=== PATIENT | female | born 2000 | race African-American/Black ===

== ENCOUNTER 2021-03-30 05:58 | Inpatient (IN) ==
[2021-03-30] MEDS ORDERED: CITRIC ACID/SODIUM CITRATE 30 ML UDCUP PO ONE (06:07)
[2021-03-30] MEDS ORDERED: ceFAZolin 2,000 MG in PREMIX 1 EACH IV ONE (06:07)
[2021-03-30] MEDS ORDERED: FAMOTIDINE 20 MG/2 ML VIAL IV ONE (06:07)
[2021-03-30] MEDS: LACTATED RINGERS 1,000 ML IV SCH ×2 (06:30→07:40)
[2021-03-30] MEDS ORDERED: OXYTOCIN/LR 30 UNIT/1,000 ML BAG IV ONE (06:34)
[2021-03-30] MEDS ORDERED: OXYTOCIN 10 UNIT/ML VIAL IM ONE (06:35)
[2021-03-30 06:50] LABS: Basophils % 0.3 % (0.0-0.8); Eosinophils # 0.1 10*3/uL (0.0-0.87); Hematocrit 38.5 VOL% (35.7-47.0); Hemoglobin 11.7 GM/DL (12.0-16.0); Immature Granulocytes % 0.5 %; Immature Granulocytes Absolute 0.04 #; Lymphocytes # 2.3 10*3/uL (1.4-4.0); Lymphocytes % 29.2 % (21.3-54.2); Mean Corpuscular HGB Conc 30.4 GM/DL (32-36); Mean Corpuscular Volume 76.5 FL (87-102); Mean Platelet Volume 12.3 FL (9.6-12.0); Monocytes % 8.7 % (1.7-12.7); Neutrophils % 60.3 % (38.7-73.9); Platelet Count 159 T/CUMM (130-400); Red Blood Count 5.03 MC/CUMM (3.8-5.5); Red Cell Distribution Width 13.2 % (9.3-17.3); White Blood Count 7.7 T/CUMM (4-12)
[2021-03-30 07:28] LABS: Hypochromasia 2+; Microcytosis 2+; Platelet Estimate Adequate; Polychromasia Slight
[2021-03-30 07:29] LABS: Albumin 2.7 G/DL (3.4-5.0); Bilirubin,Total 0.4 MG/DL (0.2-1.0); Calcium 8.8 MG/DL (8.5-10.1); Osmolality,Calculated 264.2 MOS/KG (273-304); Potassium 3.9 MMOL/L (3.5-5.1); Total Protein 7.2 G/DL (6.4-8.2)
[2021-03-30] MEDS ORDERED: TRANEXAMIC ACID 1,000 MG/10 ML VIAL ONE (07:36)
[2021-03-30] MEDS ORDERED: miSOPROStoL 200 MCG TABLET ONE (07:36)
[2021-03-30] MEDS ORDERED: OXYTOCIN/LR 20 UNIT/1,000 ML BAG IV ONE ×2 (07:37→11:58)
[2021-03-30] MEDS ORDERED: METHYLERGONOVINE 0.2 MG/1 ML AMP ONE (07:37)
[2021-03-30] MEDS ORDERED: CARBOPROST TROMETHAMINE 250 MCG/ML AMP IM ONE (07:37)
[2021-03-30] MEDS ORDERED: SODIUM CHLORIDE 0.9% 0 ML IV ONE (07:39)
[2021-03-30] MEDS ORDERED: ONDANSETRON 4 MG/2 ML VIAL ONE (09:56)
[2021-03-30] MEDS ORDERED: DEXAMETHASONE 4 MG/1 ML VIAL ONE ×2 (09:56)
[2021-03-30] MEDS ORDERED: BUPIVACAINE SPINAL 0.75% 2 ML AMP SPINAL ONE (09:56)
[2021-03-30] MEDS ORDERED: ACETAMINOPHEN INJ 1,000 MG/100 ML VIAL IV ONE (10:13)
[2021-03-30] MEDS ORDERED: KETOROLAC 30 MG/1 ML VIAL ONE (10:13)
[2021-03-30] MEDS ORDERED: ePHEDrine 50 MG/ML VIAL ONE (10:46)
[2021-03-30] MEDS ORDERED: PHENYLEPHRINE 1 MG/10 ML SYRINGE IV ONE (10:46)
[2021-03-30 11:42] LABS: Cord Venous Blood HCO3 24.4 MMOL/L; Cord Venous Blood PCO2 45.6 MMHG; Cord Venous Blood PO2 35.9 MMHG
[2021-03-30] MEDS ORDERED: SIMETHICONE CHEW 80 MG TABLET PO PRN (11:58)
[2021-03-30] MEDS ORDERED: ACETAMINOPHEN 325 MG TABLET PO PRN (11:58)
[2021-03-30] MEDS ORDERED: ONDANSETRON 4 MG/2 ML VIAL IV PRN (11:58)
[2021-03-30] MEDS ORDERED: RHO(D) IMMUNE GLOBULIN 300 MCG SYRINGE IM ONE (11:58)
[2021-03-30] MEDS ORDERED: MAGNESIUM HYDROXIDE SUSP 30 ML UDCUP PO PRN (11:58)
[2021-03-30] MEDS ORDERED: LACTATED RINGERS 1,000 ML IV SCH (12:00)
[2021-03-30 12:03] LABS: Bacteria,Urine Occasional /HPF (Few); Bilirubin,Urine Negative (Negative); Blood, Urine Negative (Negative); Glucose,Urine (UA) Negative (Negative); Ketones,Urine Negative (Negative); Mucus,Urine Occasional /LPF (Occasional); Nitrite,Urine Negative (Negative); Protein,Urine Negative; RBC,Urine <1 /HPF (0-4); Squamous Epithelial Cell,Urine Occasional /HPF (0-10); Urine Appearance CLEAR (Clear); Urine Color Yellow (Yellow); Urine Specific Gravity 1.013 (1.001-1.035); Urine Urobilinogen < 2.0 EU/DL (0.2-1.0)
[2021-03-30] MEDS: ACETAMINOPHEN 500 MG TABLET PO SCH ×2 (17:12→23:29)
[2021-03-30] MEDS: KETOROLAC 30 MG/1 ML VIAL IV SCH ×2 (17:13→23:30)
[2021-03-30 19:10] LABS: Basophils % 0.1 % (0.0-0.8); Hemoglobin 10.9 GM/DL (12.0-16.0); Immature Granulocytes % 0.5 %; Immature Granulocytes Absolute 0.06 #; Lymphocytes % 8.8 % (21.3-54.2); Mean Corpuscular HGB Conc 30.3 GM/DL (32-36); Mean Corpuscular Volume 77.4 FL (87-102); Monocytes % 2.7 % (1.7-12.7); Neutrophils % 87.9 % (38.7-73.9); Platelet Count 141 T/CUMM (130-400); Red Blood Count 4.65 MC/CUMM (3.8-5.5); Red Cell Distribution Width 13.2 % (9.3-17.3); White Blood Count 10.9 T/CUMM (4-12)
[2021-03-30] MEDS: DOCUSATE SODIUM 100 MG CAPSULE PO SCH (21:00)
[2021-03-31] MEDS: KETOROLAC 30 MG/1 ML VIAL IV SCH (05:15)
[2021-03-31] MEDS: ACETAMINOPHEN 500 MG TABLET PO SCH (05:15)
[2021-03-31 05:22] LABS: Basophils % 0.2 % (0.0-0.8); Eosinophils % 0.2 % (0.00-10.9); Hematocrit 31.9 VOL% (35.7-47.0); Immature Granulocytes % 1.1 %; Immature Granulocytes Absolute 0.12 #; Lymphocytes # 1.6 10*3/uL (1.4-4.0); Lymphocytes % 14.3 % (21.3-54.2); Mean Corpuscular HGB Conc 31.3 GM/DL (32-36); Mean Corpuscular Volume 75.6 FL (87-102); Mean Platelet Volume 12.5 FL (9.6-12.0); Neutrophils % 74.2 % (38.7-73.9); Platelet Count 128 T/CUMM (130-400); Red Blood Count 4.22 MC/CUMM (3.8-5.5); Red Cell Distribution Width 13.2 % (9.3-17.3); White Blood Count 10.9 T/CUMM (4-12)
[2021-03-31 06:18] LABS: Band Neutrophils 5 % (0-10); Lymphocytes 11 % (20-55); Platelet Estimate Adequate; Segmented Neutrophils 78 % (50-85); Total Cells Counted 100
[2021-03-31 06:19] LABS: Anisocytosis 1+
[2021-03-31] MEDS: DOCUSATE SODIUM 100 MG CAPSULE PO SCH ×2 (08:40→21:25)
[2021-03-31] MEDS: MULTIVITAMIN (PRENATAL) TABLET PO SCH (08:40)
[2021-03-31] MEDS: IBUPROFEN 800 MG TABLET PO PRN ×2 (10:53→21:25)
[2021-04-01] MEDS: DOCUSATE SODIUM 100 MG CAPSULE PO SCH ×2 (10:34→20:29)
[2021-04-01] MEDS: MULTIVITAMIN (PRENATAL) TABLET PO SCH (10:34)
[2021-04-01] MEDS: IBUPROFEN 800 MG TABLET PO PRN (16:24)
[2021-04-02] MEDS: MULTIVITAMIN (PRENATAL) TABLET PO SCH (10:31)
[2021-04-02] MEDS: DOCUSATE SODIUM 100 MG CAPSULE PO SCH (10:31)
[2021-04-02] MEDS: IBUPROFEN 800 MG TABLET PO PRN (10:39)
[2021-04-02 13:15] VITALS: BP 135/83
== END 2021-04-02 13:00 | disposition home or self-care (01) | DRG 788 ==
LOC: N.LD 05:58 → N.OB 16:45
PROVIDERS: ADMIT Obstetrics & Gynecology; ATTEND Obstetrics & Gynecology
PROC: LDCSECT (ICD-10-PCS; 2021-03-30 10:15)

== ENCOUNTER 2022-05-17 07:41 | Inpatient (IN) ==
[2022-05-17] MEDS ORDERED: TRANEXAMIC ACID 1,000 MG in SODIUM CHLORIDE 0.9% 100 ML IV PRN (08:06)
[2022-05-17] MEDS ORDERED: METHYLERGONOVINE 0.2 MG/1 ML AMP IM PRN (08:06)
[2022-05-17] MEDS ORDERED: OXYTOCIN/LR 20 UNIT/1,000 ML BAG IV ONE ×2 (08:06→10:29)
[2022-05-17] MEDS ORDERED: CITRIC ACID/SODIUM CITRATE 30 ML UDCUP PO ONE (08:06)
[2022-05-17] MEDS ORDERED: FAMOTIDINE 20 MG/2 ML VIAL IV ONE (08:06)
[2022-05-17] MEDS ORDERED: ceFAZolin 2,000 MG/50 ML DUPLEX IV ONE (08:06)
[2022-05-17] MEDS ORDERED: CARBOPROST TROMETHAMINE 250 MCG/ML AMP IM PRN (08:06)
[2022-05-17] MEDS ORDERED: miSOPROStoL 200 MCG TABLET PO PRN (08:06)
[2022-05-17] MEDS ORDERED: LACTATED RINGERS 1,000 ML IV SCH ×2 (08:30→10:30)
[2022-05-17 08:33] LABS: Basophils % 0.3 % (0.0-0.8); Eosinophils # 0.1 10*3/uL (0.0-0.87); Eosinophils % 1.7 % (0.00-10.9); Hematocrit 36.5 VOL% (35.7-47.0); Immature Granulocytes % 0.4 %; Immature Granulocytes Absolute 0.03 #; Lymphocytes # 1.9 10*3/uL (1.4-4.0); Lymphocytes % 26.3 % (21.3-54.2); Mean Corpuscular HGB Conc 30.1 GM/DL (32-36); Mean Corpuscular Volume 75.4 FL (87-102); Mean Platelet Volume 12.1 FL (9.6-12.0); Monocytes # 0.6 10*3/uL (0.11-0.8); Monocytes % 8.3 % (1.7-12.7); Platelet Count 177 T/CUMM (130-400); Red Blood Count 4.84 MC/CUMM (3.8-5.5); Red Cell Distribution Width 13.4 % (9.3-17.3); White Blood Count 7.1 T/CUMM (4-12)
[2022-05-17] MEDS ORDERED: buprenorphine HCL 0.3 MG/ML VIAL ONE (08:36)
[2022-05-17] MEDS ORDERED: BUPIVACAINE MPF 0.5% 30 ML VIAL ONE (08:36)
[2022-05-17] MEDS ORDERED: miSOPROStoL 200 MCG TABLET ONE (08:43)
[2022-05-17] MEDS ORDERED: CARBOPROST TROMETHAMINE 250 MCG/ML AMP IM ONE (08:43)
[2022-05-17 08:54] LABS: Alanine Aminotransferase 17 U/L (13-56); Albumin 2.4 G/DL (3.4-5.0); Alkaline Phosphatase 139 U/L (45-117); Aspartate Amino Transferase 18 U/L (0-37); Bilirubin,Total < 0.39 MG/DL (0.20-1.00); Blood Urea Nitrogen 11 MG/DL (7-18); Carbon Dioxide 20 MMOL/L (21-32); Chloride 109 MMOL/L (98-107); Glucose 83 MG/DL (74-106); Osmolality,Calculated 270.8 MOS/KG (273-304); Potassium 3.8 MMOL/L (3.5-5.1); Sodium 137 MMOL/L (136-145); Total Protein 6.8 G/DL (6.4-8.2)
[2022-05-17] MEDS ORDERED: OXYTOCIN 10 UNIT/ML VIAL IM ONE (09:00)
[2022-05-17] MEDS ORDERED: OXYTOCIN/LR 30 UNIT/1,000 ML BAG IV ONE (09:00)
[2022-05-17 10:00] LABS: Cord Arterial Blood HCO3 21.1 MMOL/L
[2022-05-17] MEDS ORDERED: ONDANSETRON 4 MG/2 ML VIAL ONE (10:00)
[2022-05-17 10:03] LABS: Cord Venous Blood HCO3 21.5 MMOL/L; Cord Venous Blood PCO2 52.7 MMHG; Cord Venous Blood PO2 20.5
[2022-05-17 10:08] LABS: Bacteria,Urine Occasional /HPF (Few); Mucus,Urine Moderate /LPF (Occasional); RBC,Urine 2 /HPF (0-4); Squamous Epithelial Cell,Urine Occasional /HPF (0-10); Urine Appearance Clear (Clear); Urine Color Yellow (Yellow); Urine pH 6.5 (4.5-8.0)
[2022-05-17 10:09] LABS: Bilirubin,Urine Negative (Negative); Blood, Urine Trace mg/dL (Negative); Glucose,Urine (UA) Negative (Negative); Ketones,Urine Negative (Negative); Nitrite,Urine Negative (Negative); Protein,Urine Negative (Negative); Urine Specific Gravity > 1.030 (1.001-1.035); Urine Urobilinogen 0.2 eU/dL (<2.0)
[2022-05-17] MEDS ORDERED: ONDANSETRON 4 MG/2 ML VIAL IV PRN (10:29)
[2022-05-17] MEDS ORDERED: ACETAMINOPHEN 325 MG TABLET PO PRN (10:29)
[2022-05-17] MEDS ORDERED: RHO(D) IMMUNE GLOBULIN 300 MCG SYRINGE IM ONE (10:29)
[2022-05-17] MEDS ORDERED: ACETAMINOPHEN 500 MG TABLET PO SCH ×2 (11:00→18:30)
[2022-05-17] MEDS ORDERED: KETOROLAC 30 MG/1 ML VIAL IV SCH ×2 (11:00→18:30)
[2022-05-17] MEDS: KETOROLAC 30 MG/1 ML VIAL IV SCH (17:41)
[2022-05-17] MEDS: ACETAMINOPHEN 500 MG TABLET PO SCH (17:42)
[2022-05-17 18:10] LABS: Basophils % 0.2 % (0.0-0.8); Eosinophils # 0.1 10*3/uL (0.0-0.87); Eosinophils % 0.5 % (0.00-10.9); Hematocrit 34.9 VOL% (35.7-47.0); Hemoglobin 10.8 GM/DL (12.0-16.0); Immature Granulocytes % 0.4 %; Immature Granulocytes Absolute 0.04 #; Lymphocytes # 1.8 10*3/uL (1.4-4.0); Lymphocytes % 19.5 % (21.3-54.2); Mean Corpuscular HGB Conc 30.9 GM/DL (32-36); Mean Corpuscular Volume 74.7 FL (87-102); Mean Platelet Volume 12.3 FL (9.6-12.0); Monocytes # 0.7 10*3/uL (0.11-0.8); Monocytes % 7.7 % (1.7-12.7); Neutrophils % 71.7 % (38.7-73.9); Platelet Count 153 T/CUMM (130-400); Red Blood Count 4.67 MC/CUMM (3.8-5.5); Red Cell Distribution Width 13.4 % (9.3-17.3); White Blood Count 9.4 T/CUMM (4-12)
[2022-05-17] MEDS: DOCUSATE SODIUM 100 MG CAPSULE PO SCH (21:51)
[2022-05-18] MEDS: ACETAMINOPHEN 500 MG TABLET PO SCH ×2 (00:49→06:40)
[2022-05-18] MEDS: KETOROLAC 30 MG/1 ML VIAL IV SCH ×2 (00:49→06:40)
[2022-05-18 05:32] LABS: Basophils % 0.4 % (0.0-0.8); Eosinophils # 0.1 10*3/uL (0.0-0.87); Eosinophils % 1.9 % (0.00-10.9); Hematocrit 30.4 VOL% (35.7-47.0); Hemoglobin 9.3 GM/DL (12.0-16.0); Immature Granulocytes % 0.4 %; Immature Granulocytes Absolute 0.03 #; Lymphocytes # 2.3 10*3/uL (1.4-4.0); Lymphocytes % 30.9 % (21.3-54.2); Mean Corpuscular HGB Conc 30.6 GM/DL (32-36); Mean Corpuscular Volume 75.6 FL (87-102); Monocytes # 0.7 10*3/uL (0.11-0.8); Monocytes % 9.2 % (1.7-12.7); Neutrophils % 57.2 % (38.7-73.9); Platelet Count 134 T/CUMM (130-400); Red Blood Count 4.02 MC/CUMM (3.8-5.5); Red Cell Distribution Width 13.3 % (9.3-17.3); White Blood Count 7.3 T/CUMM (4-12)
[2022-05-18] MEDS: MAGNESIUM HYDROXIDE SUSP 30 ML UDCUP PO PRN ×2 (09:49→19:44)
[2022-05-18] MEDS: METOCLOPRAMIDE 10 MG TABLET PO SCH ×2 (09:49→19:44)
[2022-05-18] MEDS: DOCUSATE SODIUM 100 MG CAPSULE PO SCH ×2 (09:49→19:44)
[2022-05-18] MEDS: MULTIVITAMIN (PRENATAL) TABLET PO SCH (09:49)
[2022-05-18] MEDS: SIMETHICONE CHEW 80 MG TABLET PO PRN ×2 (09:49→19:44)
[2022-05-18] MEDS: IBUPROFEN 800 MG TABLET PO PRN (19:43)
[2022-05-19] MEDS: METOCLOPRAMIDE 10 MG TABLET PO SCH ×3 (03:49→11:00)
[2022-05-19] MEDS: IBUPROFEN 800 MG TABLET PO PRN ×2 (03:53→15:15)
[2022-05-19] MEDS: DOCUSATE SODIUM 100 MG CAPSULE PO SCH ×3 (07:37→20:52)
[2022-05-19] MEDS: SIMETHICONE CHEW 80 MG TABLET PO PRN (09:07)
[2022-05-19] MEDS: MULTIVITAMIN (PRENATAL) TABLET PO SCH (09:07)
[2022-05-19] MEDS: MAGNESIUM HYDROXIDE SUSP 30 ML UDCUP PO PRN (09:07)
[2022-05-20] MEDS: DOCUSATE SODIUM 100 MG CAPSULE PO SCH (10:20)
[2022-05-20] MEDS: MULTIVITAMIN (PRENATAL) TABLET PO SCH (10:20)
[2022-05-20 11:43] VITALS: BP 125/67
== END 2022-05-20 15:25 | disposition home or self-care (01) | DRG 788 ==
LOC: N.LD 07:41 → N.OB 14:38
PROVIDERS: ADMIT Obstetrics & Gynecology; ATTEND Obstetrics & Gynecology
PROC: LDCSECT (ICD-10-PCS; 2022-05-17 08:00)